=== PATIENT | female | born 1990 | race Caucasian/White ===

== ENCOUNTER 2023-10-10 18:29 | Inpatient (IN) | payer OTHER ==
[~2023-10-10 18:29] MED LIST: CEPHALEXIN250 M1 PO; NO HOME MEDICATIONS
[2023-10-20] MEDS ORDERED: ROPivacaine PF 0.2% 200 ML IV ONE (13:16)
[2023-10-20] MEDS ORDERED: Chloroprocaine PF 3% (30 MG/ML) 20 ML VIAL ONE (14:20)
== END 2023-10-21 19:30 | disposition home or self-care (01) | DRG 806 ==
LOC: OB 10-20 06:08
PROVIDERS: ADMIT Student in an Organized Health Care Education/Training Program
PROC: 10E0XZZ Delivery of Products of Conception, External Approach (ICD-10-PCS; principal; 2023-10-20)
PROC: 0KQM0ZZ Repair Perineum Muscle, Open Approach (ICD-10-PCS; 2023-10-20)
PROC: 3E033VJ Introduction of Other Hormone into Peripheral Vein, Percutaneous Approach (ICD-10-PCS; 2023-10-20)
PROC: 0UQMXZZ Repair Vulva, External Approach (ICD-10-PCS; 2023-10-20)
DX: O48.0 Post-term pregnancy (principal); O98.32 Other infections with a predominantly sexual mode of transmission complicating childbirth; Z37.0 Single live birth; Z3A.40 40 weeks gestation of pregnancy; O99.214 Obesity complicating childbirth; A63.0 Anogenital (venereal) warts; O69.81X0 Labor and delivery complicated by cord around neck, without compression, not applicable or unspecified; O76 Abnormality in fetal heart rate and rhythm complicating labor and delivery
CPT/HCPCS: J2401; J2795